=== PATIENT | female | born 1965 | race Caucasian/White ===

== ENCOUNTER 2016-03-17 08:58 | Emergency (ER) | payer OTHER ==
--- NOTE | 2016-03-17 10:13 | UC ---
Throat Pain/Nasal Juarez HPI - HPI Summary HPI Summary: cough x 1 week , + nasal congestion, no fever, no chills lost her voice over the past 2 days - History of Current Complaint Chief Complaint: UCRespiratory Stated Complaint: COUGH Time Seen by Provider: 03/17/16 09:59 Hx Obtained From: Patient Hx Last Menstrual Period: age 42 Onset/Duration: Gradual Onset, Lasting Days - 7, Still Present Severity: Moderate Cough: Nonproductive Associated Signs & Symptoms: Positive: Hoarseness. Negative: FB Sensation, Drooling, Sinus Discomfort, Nasal Discharge, Fever, Rash - Allergies/Home Medications Allergies/Adverse Reactions: Allergies Allergy/AdvReac Type Severity Reaction Status Date / Time allergies Allergy Congestion Uncoded 03/17/16 09:52 Home Medications: Home Medications Albuterol HFA INHALER* [Ventolin HFA Inhaler*] 2 puff INH Q4H PRN 03/17/16 [ History Confirmed 03/17/16] Diclofenac [Zorvolex] 35 mg PO BID PRN 03/17/16 [History Confirmed 03/17/16] Venlafaxine HCl [Effexor XR-] 37.5 mg PO BID 03/17/16 [History Confirmed ] predniSONE TAB* [Deltasone TAB*] 5 mg PO MONTHLY 03/17/16 [History Confirmed ] PMH/Surg Hx/FS Hx/Imm Hx Endocrine History Of: Denies: Diabetes, Thyroid Disease Cardiovascular History Of: Denies: Cardiac Disorders, Hypertension Respiratory History Of: Denies: Asthma GI/ History Of: Reports: Gastroesophageal Reflux Psychological History Of: Reports: Depression - Surgical History Surgical History: Yes Surgery Procedure, Year, and Place: gallbladder removed, lypomas removed in groin - Family History Known Family History: Positive: Unknown Negative: Diabetes - Social History Alcohol Use: None Substance Use Type: None Smoking Status (MU): Light Every Day Tobacco Smoker Type: Cigarettes Amount Used/How Often: 1/2 ppd Have You Smoked in the Last Year: Yes Review of Systems Constitutional: Negative Skin: Negative Eyes: Negative ENT: Sore Throat Respiratory: Cough Cardiovascular: Negative Gastrointestinal: Negative Genitourinary: Negative All Other Systems Reviewed And Are Negative: Yes Physical Exam Triage Information Reviewed: Yes Appearance: Well-Appearing, No Pain Distress, Well-Nourished Vital Signs: Initial Vital Signs Temp 98.2 F 03/17/16 09:42 Pulse 90 03/17/16 09:42 Resp 20 03/17/16 09:42 BP 142/79 03/17/16 09:42 Pulse Ox 100 03/17/16 09:42 Vital Signs Reviewed: Yes Eyes: Positive: Conjunctiva Clear ENT: Positive: Normal ENT inspection, Hearing grossly normal, Pharynx normal. Negative: Pharyngeal erythema, Nasal congestion, Nasal drainage Neck exam: Normal Neck: Positive: Supple, Nontender, No Lymphadenopathy Respiratory: Positive: Chest non-tender, Lungs clear, Normal breath sounds Cardiovascular: Positive: RRR, No Murmur, Pulses Normal Abdominal Exam: Normal Skin Exam: Normal Throat Pain/Nasal Course/Dx - Differential Dx/Diagnosis Provider Diagnoses: laryngitis Discharge - Discharge Plan Condition: Stable Disposition: HOME Patient Education Materials: Laryngitis (ED) Referrals: Sayra Vale MD [Primary Care Provider] - 7 Days
[2016-03-17 10:17] VITALS: BP 142/79
== END 2016-03-17 10:20 | disposition home or self-care (01) ==
LOC: UCCORT 08:58
DX: J04.0 Acute laryngitis (principal); F32.9 Major depressive disorder, single episode, unspecified; F17.210 Nicotine dependence, cigarettes, uncomplicated
CPT/HCPCS: 99211; G0463

== ENCOUNTER 2017-12-07 13:11 | Emergency (ER) | payer OTHER ==
[2017-12-07 13:24] VITALS: BP 138/84
--- NOTE | 2017-12-07 13:40 | UC ---
Respiratory Complaint HPI - HPI Summary HPI Summary: cough x 2 weeks getting worse over the past 2 days cough is productive, yellow/ green sputum +chest congestion, nasal congestion , pnd no fever, + chills, - History of Current Complaint Chief Complaint: UCRespiratory Stated Complaint: COUGH Time Seen by Provider: 12/07/17 13:23 Hx Obtained From: Patient Hx Last Menstrual Period: age 42 Onset/Duration: Gradual Onset, Lasting Weeks - 2, Still Present Timing: Constant Severity Initially: Moderate Severity Currently: Moderate Pain Intensity: 0 Character: Cough: Productive Aggravating Factors: Exertion, Deep Breaths Alleviating Factors: Nothing Associated Signs And Symptoms: Positive: Chills, URI, Nasal Congestion. Negative: Dyspnea, Fever, Pleuritic Chest Pain, Wheezing, Hemoptysis, Dizziness , Calf Pain, Calf Swelling, Sinus Discomfort - Allergies/Home Medications Allergies/Adverse Reactions: Allergies Allergy/AdvReac Type Severity Reaction Status Date / Time allergies Allergy Congestion Uncoded 12/07/17 13:18 Home Medications: Home Medications Fluticasone-Salmeterol 500-50* [Advair Diskus 500-50*] 1 puff INH BID 12/07/17 [ History Confirmed 12/07/17] PMH/Surg Hx/FS Hx/Imm Hx Previously Healthy: Yes - Surgical History Surgical History: Yes Surgery Procedure, Year, and Place: gallbladder removed, lypomas removed in groin - Family History Known Family History: Positive: Unknown Negative: Diabetes - Social History Alcohol Use: None Substance Use Type: None Smoking Status (MU): Light Every Day Tobacco Smoker Type: Cigarettes Amount Used/How Often: 1/2 ppd- Have You Smoked in the Last Year: Yes Review of Systems Constitutional: Chills, Fatigue Skin: Negative Eyes: Negative ENT: Nasal Discharge Respiratory: Cough Cardiovascular: Negative Is Patient Immunocompromised?: No All Other Systems Reviewed And Are Negative: Yes Physical Exam Triage Information Reviewed: Yes Appearance: Well-Appearing, No Pain Distress, Well-Nourished Vital Signs: Initial Vital Signs Temp 98.1 F 12/07/17 13:20 Pulse 94 12/07/17 13:20 Resp 19 12/07/17 13:20 BP 138/84 12/07/17 13:20 Pulse Ox 98 12/07/17 13:20 Vital Signs Reviewed: Yes Eyes: Positive: Conjunctiva Clear ENT: Positive: Normal ENT inspection, Hearing grossly normal, Pharynx normal, Nasal drainage Neck exam: Normal Neck: Positive: Supple, Nontender, No Lymphadenopathy Respiratory: Positive: Chest non-tender, Lungs clear, Normal breath sounds, No respiratory distress. Negative: Accessory muscle use, Crackles, Rhonchi, Wheezing Cardiovascular: Positive: RRR, No Murmur, Pulses Normal Skin Exam: Normal UC Diagnostic Evaluation - Laboratory O2 Sat by Pulse Oximetry: 98 Respiratory Course/Dx - Differential Dx/Diagnosis Provider Diagnoses: Bronchitis Discharge - Sign-Out/Discharge Documenting (check all that apply): Patient Departure All imaging exams completed and their final reports reviewed: No Studies - Discharge Plan Condition: Stable Disposition: HOME Prescriptions: Azithromycin TAB* [Zithromax TAB (Z-SHANTHI) 250 mg #6 tabs] 2 tab PO .TODAY, THEN 1 DAILY #1 shanthi Codeine Phosphate/Guaifenesin [Cheratussin AC] 10 ml PO Q8H PRN #120 ml MDD 30 mlc PRN Reason: Cough Patient Education Materials: Acute Bronchitis (ED) Referrals: Sayra Vale MD [Primary Care Provider] - If Needed - Billing Disposition and Condition Condition: STABLE Disposition: Home
== END 2017-12-07 13:44 | disposition home or self-care (01) ==
LOC: UCCORT 13:11
DX: J40 Bronchitis, not specified as acute or chronic (principal); F17.210 Nicotine dependence, cigarettes, uncomplicated
CPT/HCPCS: 99212; G0463

== ENCOUNTER 2018-01-21 12:54 | Emergency (ER) | payer OTHER ==
[2018-01-21 13:36] VITALS: BP 140/95
--- NOTE | 2018-01-21 13:58 | UC ---
Skin Complaint HPI - HPI Summary HPI Summary: itchy rash x 1 week rash is on her back arms and stomach very itchy with scabies - History of Current Complaint Chief Complaint: UCSkin Time Seen by Provider: 01/21/18 13:37 Stated Complaint: SKIN COMPLAINT Hx Obtained From: Patient Hx Last Menstrual Period: age 42 ?: No Onset/Duration: Gradual Onset, Lasting Days - 10, Still Present Timing: Constant Onset Severity: Moderate Current Severity: Moderate Pain Intensity: 0 Location: Diffuse Character: Pruritus, Redness, Raised Aggravating Factor(s): Nothing Alleviating Factor(s): Nothing Associated Signs & Symptoms: Positive: Rash. 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 - Surgical History Surgical History: Yes Surgery Procedure, Year, and Place: gallbladder removed, lypomas removed in groin - Family History Known Family History: Positive: Unknown Negative: Diabetes - Social History Alcohol Use: None Substance Use Type: None Smoking Status (MU): Light Every Day Tobacco Smoker Type: Cigarettes Amount Used/How Often: 1/2 ppd- Have You Smoked in the Last Year: Yes Review of Systems All Other Systems Reviewed And Are Negative: Yes Constitutional: Positive: Negative Skin: Positive: Rash Eyes: Positive: Negative ENT: Positive: Negative Respiratory: Positive: Negative Cardiovascular: Positive: Negative Is Patient Immunocompromised?: No Physical Exam Triage Information Reviewed: Yes Appearance: Well-Appearing, No Pain Distress, Well-Nourished Vital Signs: Initial Vital Signs Temp 97.4 F 01/21/18 13:33 Pulse 88 01/21/18 13:33 Resp 18 01/21/18 13:33 BP 140/95 01/21/18 13:33 Pulse Ox 99 01/21/18 13:33 Vital Signs Reviewed: Yes Eyes: Positive: Conjunctiva Clear ENT: Positive: Normal ENT inspection, Hearing grossly normal, Pharynx normal Neck: Positive: Supple, Nontender, No Lymphadenopathy Respiratory: Positive: Chest non-tender, Lungs clear, Normal breath sounds Cardiovascular: Positive: RRR, No Murmur, Pulses Normal Skin: Positive: Rashes - maculopapulary rash of lowe back / abdominal area , bilateral arms Course/Dx - Diagnoses Provider Diagnosis: Scabies Discharge - Sign-Out/Discharge Documenting (check all that apply): Patient Departure All imaging exams completed and their final reports reviewed: No Studies - Discharge Plan Condition: Stable Disposition: HOME Prescriptions: Permethrin 5% CREAM* 1 applic TOPICAL SEE INSTRUCTIONS #1 tube Triamcinolone 0.1% CREAM (NF) [Kenalog 0.1% Cream (NF)] 1 applic TOPICAL BID # 60 gm Patient Education Materials: Scabies (ED) Referrals: No Primary Care Phys,NOPCP [Primary Care Provider] - 2 Weeks - Billing Disposition and Condition Condition: STABLE Disposition: Home
== END 2018-01-21 14:00 | disposition home or self-care (01) ==
LOC: UCCORT 12:54
DX: B86 Scabies (principal); H91.91 Unspecified hearing loss, right ear; G51.0 Bell's palsy; F17.210 Nicotine dependence, cigarettes, uncomplicated
CPT/HCPCS: 99212; G0463

== ENCOUNTER 2019-01-07 13:55 | Emergency (ER) | payer OTHER ==
[2019-01-07 14:45] VITALS: BP 136/81
--- NOTE | 2019-01-07 15:01 | UC ---
Throat Pain/Nasal Juarez HPI - HPI Summary HPI Summary: 53-year-old woman comes in with a chief complaint of sinus congestion and chest congestion for 5 weeks. Patient's been using her albuterol inhaler which does help with the shortness of breath. She has had green rhinorrhea. - History of Current Complaint Chief Complaint: UCGeneralIllness Stated Complaint: CONGESTION COUGH CHILLS/SWEATS Time Seen by Provider: 01/07/19 14:52 Hx Last Menstrual Period: age 42 Pain Intensity: 0 - Allergies/Home Medications Allergies/Adverse Reactions: Allergies Allergy/AdvReac Type Severity Reaction Status Date / Time bee venom protein (honey bee) Allergy Anaphylatic Verified 01/21/18 13:34 Shock allergies Allergy Congestion Uncoded 12/07/17 13:18 root beer AdvReac Vomiting Uncoded 01/21/18 13:34 Home Medications: Home Medications Dm/PE/Acetaminophen/Doxylamine [Nighttime Severe Cold-Flu Liq] 1 udc PO BEDTIME PRN 01/07/19 [History Confirmed 01/07/19] Pseudoephedrine HCl [Sudafed 12-Hour] 120 mg PO BID 01/07/19 [History Confirmed 01/07/19] metFORMIN* [Glucophage 500 MG TAB *] 500 mg PO BID 01/07/19 [History Confirmed 01/07/19] PMH/Surg Hx/FS Hx/Imm Hx Previously Healthy: Yes Endocrine History: Diabetes Respiratory History: COPD GI/ History: Gastroesophageal Reflux - Surgical History Surgical History: Yes Surgery Procedure, Year, and Place: gallbladder removed, lypomas removed in groin - Family History Known Family History: Positive: Unknown Negative: Diabetes - Social History Alcohol Use: None Substance Use Type: None Smoking Status (MU): Former Smoker Type: Cigarettes Amount Used/How Often: 1/2 ppd- Have You Smoked in the Last Year: Yes When Did the Patient Quit Smoking/Using Tobacco: 2 days ago, only 3 cigs in 3 wks Review of Systems All Other Systems Reviewed And Are Negative: Yes Constitutional: Positive: Other - SEE HPI Skin: Positive: Negative Eyes: Positive: Negative ENT: Positive: Nasal Discharge, Sinus Congestion Respiratory: Positive: Cough, Other - SEE GPI Cardiovascular: Positive: Negative Gastrointestinal: Positive: Negative Motor: Positive: Negative Neurovascular: Positive: Negative Musculoskeletal: Positive: Negative Neurological: Positive: Negative Psychological: Positive: Negative Is Patient Immunocompromised?: No Physical Exam Triage Information Reviewed: Yes Appearance: No Pain Distress, Well-Nourished, Ill-Appearing - MILD Vital Signs: Initial Vital Signs Temp 98.2 F 01/07/19 14:40 Pulse 98 01/07/19 14:40 Resp 15 01/07/19 14:40 BP 136/81 01/07/19 14:40 Pulse Ox 99 01/07/19 14:40 Vital Signs Reviewed: Yes Eye Exam: Normal Eyes: Positive: Conjunctiva Clear ENT: Positive: Pharyngeal erythema, Nasal congestion, Nasal drainage, TMs normal Neck: Positive: Supple Respiratory: Positive: Lungs clear, Normal breath sounds, No respiratory distress Cardiovascular: Positive: RRR Musculoskeletal: Positive: Strength Intact, ROM Intact Neurological: Positive: Alert Psychological: Positive: Age Appropriate Behavior Skin Exam: Normal Throat Pain/Nasal Course/Dx - Differential Dx/Diagnosis Provider Diagnosis: Sinusitis, Bronchitis Discharge ED - Sign-Out/Discharge Documenting (check all that apply): Patient Departure All imaging exams completed and their final reports reviewed: No Studies - Discharge Plan Condition: Stable Disposition: HOME Prescriptions: Amoxicillin PO (*) [Amoxicillin 875 MG (*)] 875 mg PO BID #20 tab Patient Education Materials: Sinusitis (ED), Acute Bronchitis (ED) Referrals: Marjan Vaughn [Primary Care Provider] - Additional Instructions: FOLLOW UP WITH YOUR DOCTOR IF NOT COMPLETELY IMPROVED. GET REEVALUATED SOONER IF NOT IMPROVING OR GO TO THE EMERGENCY DEPARTMENT IF WORSE; SHORTNESS OF BREATH, YOU FEEL ILL OR ANY QUESTIONS OR CONCERNS. - Billing Disposition and Condition Condition: STABLE Disposition: Home
== END 2019-01-07 15:08 | disposition home or self-care (01) ==
LOC: UCCORT 13:55
DX: J32.9 Chronic sinusitis, unspecified (principal); J44.9 Chronic obstructive pulmonary disease, unspecified; E11.9 Type 2 diabetes mellitus without complications; Z79.84 Long term (current) use of oral hypoglycemic drugs; Z87.891 Personal history of nicotine dependence; Z91.030 Bee allergy status; Z91.018 Allergy to other foods
CPT/HCPCS: 99212; G0463

== ENCOUNTER 2019-01-28 12:47 | Emergency (ER) | payer MEDICAID, OTHER ==
--- NOTE | 2019-01-28 13:17 | UC ---
Respiratory Complaint HPI - HPI Summary HPI Summary: Patient presents to urgent care with progress and congestion sore throat cough and congestion for the last 4-5 days. Patient states she's got laryngitis that started 5 days ago. Patient with low-grade tactile temperatures. Patient with nausea no vomiting. No chest pain. Patient denies when she, she feels short of breath but otherwise just has wheezing was depressed. Patient has taken some [id number] products with little improvement. Patient's medication is untreated and the EMR by triage was reviewed this visit. - History of Current Complaint Stated Complaint: COUGH Time Seen by Provider: 01/28/19 12:54 Hx Obtained From: Patient Hx Last Menstrual Period: age 42 - Allergies/Home Medications Allergies/Adverse Reactions: Allergies Allergy/AdvReac Type Severity Reaction Status Date / Time bee venom protein (honey bee) Allergy Anaphylatic Verified 01/28/19 13:09 Shock allergies Allergy Congestion Uncoded 01/28/19 13:09 root beer AdvReac Vomiting Uncoded 01/28/19 13:09 Home Medications: Home Medications Diclofenac Sodium 75 mg PO DAILY 01/28/19 [History Confirmed 01/28/19] PMH/Surg Hx/FS Hx/Imm Hx Previously Healthy: Yes - Surgical History Surgical History: Yes Surgery Procedure, Year, and Place: gallbladder removed, lypomas removed in groin - Family History Known Family History: Positive: Non-Contributory Negative: Diabetes - Social History Occupation: Employed Full-time Lives: With Family Alcohol Use: None Substance Use Type: None Smoking Status (MU): Former Smoker Type: Cigarettes Amount Used/How Often: 1/2 ppd- Have You Smoked in the Last Year: Yes When Did the Patient Quit Smoking/Using Tobacco: 2 days ago, only 3 cigs in 3 wks Review of Systems All Other Systems Reviewed And Are Negative: Yes Constitutional: Positive: Fever - tactile, Fatigue ENT: Positive: Sore Throat, Nasal Discharge, Sinus Congestion Respiratory: Positive: Cough Cardiovascular: Positive: Negative Gastrointestinal: Positive: Negative Genitourinary: Positive: Negative Physical Exam - Summary Physical Exam Summary: Vital Signs Reviewed: Yes A+Ox3, no distress, congested with laryngitis Eyes: Conjunctiva Clear, LAURA. EOM intact and full ENT: Hearing grossly normal TM x 2 clear, turbiantes inflammed and boggy, + PND , mmoist, uvula midline, no exudate, + erythema Neck: Positive: Supple Respiratory: Positive: No respiratory distress, No accessory muscle use + coarse cough, scattered wheeze, speaking full sentences Cardiovascular: RRR nl s1, s2 no m/r CBT <2 sec abd soft + BS nt/nd no guarding, no distension Musculoskeletal Exam: CHOWDARY x 4 without difficulty Strength Intact, ROM Intact Neurological: Positive: Alert, + sensation throughout Psychological: Positive: Normal Response To examiner Skin: Positive: no rash, no ecchymosis Triage Information Reviewed: Yes Diagnostics - Radiology No standard instances Radiology Interpretation Completed By: Radiologist - Patient Name: KATYA US Medical Record#: [id number] Ordering Physician: Monica Nixon MD Acct.#: [id number] : Age: 53 Sex: F Location: [facility] Exam Date: 01/28/19 1331 ADM Status: REG ER Order Information: CHEST PA & LAT 2 VWS Accession Number: [id number] CPT: 49586 INDICATION: Cough and wheeze COMPARISON: Chest x-ray dated August TECHNIQUE: PA and lateral views of the chest were obtained. FINDINGS: The heart and mediastinum are normal in size and contour. The lungs are grossly clear. There is no evidence of large pleural effusion. Visualized bones are normal for the patient's age. There is no radiographic evidence of free air beneath the diaphragm IMPRESSION: No radiographic evidence of acute cardiopulmonary disease. <Electronically signed by Antony Khalil MD in OV> 01/28/19 1355 Dictated By: Antony Khalil MD Dictated Date/Time: 01/28/19 135 Transcribed Date/ Time: 01/28/19 135 Copy to: CC:Marjan Vaughn MANUAL WRITER; Monica Nixon MD Imaging - [facility] [address] [place] [address] ph ([phone]) ph ([phone] ) ph ([phone]) This report is only to be considered final once signed by the Provider(s) as displayed in the "<Electronically Signed by >" field (s). Absence of a signature indicates the report is in a draft status and still needs to be finalized. In the event this document was created by someone other than the signing Provider, the individual initiating the document will be listed in the "Entered by:" or "Dictated by:" brian. 1 of 1 Re-Evaluation - Re-Evaluation First Eval Change: Improved - Patient's markedly improved. Good breath sounds. Wheezing resolved coughing less. Chest x-ray reviewed negative. Will start antibiotics. MVI. Prednisone. Secretion precautions. Humidified air. Return precautions. Respiratory Course/Dx - Course Course Of Treatment: Patient presents to urgent care with progressive congestion and low-grade fevers cough wheeze and fatigue over the last 5 days. Patient also with pharyngitis. On exam vital signs are stable. Patient does have congestion in her nasal passages, postnasal drip, and cough with respiratory wheezing. We'll give a chest x-ray DuoNeb and reassessed. We'll also check patient for strep. Patient comfortable with plan. We'll reassess after treatments. - Differential Dx/Diagnosis Provider Diagnosis: Acute bronchitis Discharge ED - Sign-Out/Discharge Documenting (check all that apply): Patient Departure All imaging exams completed and their final reports reviewed: Yes - Discharge Plan Condition: Stable Disposition: HOME Prescriptions: Amoxicillin PO (*) [Amoxicillin 500 MG CAP*] 500 mg PO Q12H #20 cap predniSONE TAB* [Deltasone 20 MG TAB*] 40 mg PO DAILY #10 tab Patient Education Materials: Acute Bronchitis (ED) Referrals: Marjan Vaughn [Primary Care Provider] - Additional Instructions: -Take antibiotics and prednisone exactly as prescribed until gone -Use your albuterol puffer - 2 puffs every 4 hours for the next 2 days - then as needed -Stay well hydrated - avoid excess caffeine and all alcohol - eat regular, healthy meals - humidify the air in the room where you sleep - boil water, run a hot steam shower, vaporizer, cups of water by heat register - okay to take over the counter decongestant and cough medication -- These infections are spread by secretions - do NOT share eating or drinking utensils - clean items you share with other people such as cell phones, computer mouse, TV remote, computer tablets,etc.. Once you have been antibiotics for 2 days, change your toothbrush and your pillowcase. -Contact your doctor to arrange a follow-up appointment this week. Call your doctor, return here or go to the emergency department with any questions or concerns - Billing Disposition and Condition Condition: STABLE Disposition: Home
[2019-01-28 13:21] VITALS: BP 134/81
[2019-01-28] MEDS ORDERED: Albuterol/Ipratropium NEB.SOL* Albuterol 2.5 MG/Ipratropium 0.5 MG 3 ML INH ONE (13:31)
== END 2019-01-28 14:22 | disposition home or self-care (01) ==
LOC: UCCORT 12:47
DX: J20.9 Acute bronchitis, unspecified (principal); R11.0 Nausea; Z91.030 Bee allergy status; Z91.09 Other allergy status, other than to drugs and biological substances; Z87.891 Personal history of nicotine dependence
CPT/HCPCS: 71046; 87651; 99212; A9270-GY; G0463

== ENCOUNTER 2019-04-22 11:50 | Emergency (ER) | payer MEDICAID, OTHER ==
[2019-04-22 12:04] VITALS: BP 135/88
[2019-04-22] MEDS ORDERED: Albuterol/Ipratropium NEB.SOL* Albuterol 2.5 MG/Ipratropium 0.5 MG 3 ML INH ONE (12:22)
--- NOTE | 2019-04-22 12:25 | UC ---
Respiratory Complaint HPI - HPI Summary HPI Summary: Chest congestion with cough x2 months. Now has yellow productive cough x2 days. Has been using inhaler and neb treatments at home with some relief. - History of Current Complaint Chief Complaint: UCRespiratory Stated Complaint: SOB/CHEST CONGESTION/COUGH Time Seen by Provider: 04/22/19 12:14 Hx Obtained From: Patient Hx Last Menstrual Period: age 42 ?: No Onset/Duration: Sudden Onset, Lasting Days Timing: Constant Severity Initially: Moderate Severity Currently: Moderate Pain Intensity: 0 Character: Cough: Nonproductive Aggravating Factors: Deep Breaths - Allergies/Home Medications Allergies/Adverse Reactions: Allergies Allergy/AdvReac Type Severity Reaction Status Date / Time bee venom protein (honey bee) Allergy Anaphylatic Verified 04/22/19 11:59 Shock environmental AdvReac See Comment Uncoded 04/22/19 11:59 root beer AdvReac Vomiting Uncoded 04/22/19 11:59 Home Medications: Home Medications LoraTADine TAB(NF) [Claritin TAB*] 10 mg PO DAILY 08/25/15 [History Confirmed ] Albuterol HFA INHALER* [Ventolin HFA Inhaler*] 2 puff INH Q4H PRN 03/17/16 [ History Confirmed 04/22/19] Fluticasone-Salmeterol 500-50* [Advair Diskus 500-50*] 1 puff INH BID 12/07/17 [ History Confirmed 04/22/19] Omeprazole CAP (NF) [Prilosec CAP* 20 MG] 20 mg PO DAILY 01/21/18 [History Confirmed 04/22/19] Pseudoephedrine HCl [Sudafed 12-Hour] 120 mg PO BID 01/07/19 [History Confirmed 04/22/19] Diclofenac Sodium 75 mg PO DAILY 01/28/19 [History Confirmed 04/22/19] Albuterol 2.5MG/3ML (0.083%)* [Ventolin 2.5 MG/3 ML NEB.BETTE*] 2.5 mg INH Q4H # 50 neb.bette 04/22/19 [Rx] DOXYcycline CAP(*) [DOXYcycline 100MG CAP(*)] 100 mg PO BID #14 cap 04/22/19 [Rx ] predniSONE 20 mg TAB [Deltasone 20 MG TAB*] 40 mg PO DAILY #8 tab 04/22/19 [Rx] PMH/Surg Hx/FS Hx/Imm Hx Previously Healthy: Yes - Surgical History Surgical History: Yes Surgery Procedure, Year, and Place: gallbladder removed, lypomas removed in groin - Family History Known Family History: Positive: Unknown, Non-Contributory Negative: Diabetes - Social History Occupation: Employed Full-time Alcohol Use: None Substance Use Type: None Smoking Status (MU): Former Smoker Type: Cigarettes Amount Used/How Often: 1/2 ppd- Have You Smoked in the Last Year: Yes When Did the Patient Quit Smoking/Using Tobacco: 12/2018 Review of Systems All Other Systems Reviewed And Are Negative: Yes ENT: Positive: Sore Throat Respiratory: Positive: Shortness Of Breath, Cough Neurological/Mental Status: Positive: Headache Is Patient Immunocompromised?: No Physical Exam Triage Information Reviewed: Yes Appearance: Ill-Appearing, Pain Distress, Obese Vital Signs: Initial Vital Signs Temp 98.9 F 04/22/19 11:56 Pulse 92 04/22/19 11:56 Resp 21 04/22/19 11:56 BP 135/88 04/22/19 11:56 Pulse Ox 99 04/22/19 11:56 Vital Signs Reviewed: Yes Eye Exam: Normal ENT Exam: Normal ENT: Positive: Pharyngeal erythema, Nasal congestion, TM bulging, TM red Dental Exam: Normal Neck exam: Normal Respiratory: Positive: Decreased breath sounds - throughout, Wheezing, Inspiration, Other: - dry cough, spastic Cardiovascular Exam: Normal Abdominal Exam: Normal Bowel Sounds: Positive: Present Musculoskeletal Exam: Normal Neurological Exam: Normal Psychological Exam: Normal Skin Exam: Normal Respiratory Course/Dx - Course Course Of Treatment: hx obtained, exam performed ,meds reviewed, neb treatment given. treaed for siusitis and bronchitis - Differential Dx/Diagnosis Provider Diagnosis: Sinusitis, Bronchitis Discharge ED - Sign-Out/Discharge Documenting (check all that apply): Patient Departure All imaging exams completed and their final reports reviewed: No Studies - Discharge Plan Condition: Stable Disposition: HOME Patient Education Materials: Sinusitis (ED) Referrals: Ayaka Browne PA [Primary Care Provider] - Additional Instructions: 1. take the medication as prescribed. 2. Increase fluids 3. Warm fluids for t your throat. 4. Follow up with your primary doctor if not improving - Billing Disposition and Condition Condition: STABLE Disposition: Home
== END 2019-04-22 12:49 | disposition home or self-care (01) ==
LOC: UCCORT 11:50
DX: J40 Bronchitis, not specified as acute or chronic (principal); J32.9 Chronic sinusitis, unspecified; Z91.09 Other allergy status, other than to drugs and biological substances; Z91.018 Allergy to other foods; Z91.030 Bee allergy status; Z87.891 Personal history of nicotine dependence
CPT/HCPCS: 99212; A9270-GY; G0463; J7512